=== PATIENT | female | born 1950 | race Caucasian/White ===

== ENCOUNTER 2023-01-11 21:37 | Emergency (ER) | payer MEDICARE ==
[~2023-01-11] VITALS: Ht 170.2 cm; Wt 59.0 kg
--- NOTE | 2023-01-11 22:45 | NUR ---
PT AMB TO [facility] WITH CONCERN OF THE SUTURE SITE ON HER BACK WAS INFECTED.
--- NOTE | 2023-01-11 22:50 | NUR ---
AT BEDSIDE FOR EVAL.
[2023-01-11] MEDS ORDERED: SULF1TAB48 PO (22:55)
[2023-01-11] MEDS ORDERED: SULFAMETH/TRIMETH 800/160 MG TABLET PO ONE (23:00)
[2023-01-11] MEDS ORDERED: SULFAMETH/TRIMETH 800/160 MG TABLET ONE (23:05)
--- NOTE | 2023-01-11 23:10 | NUR ---
PT A,A AND O X 4 WITH NO C/O PAIN AND NAD OBSERVED.Patient discharged to home in stable condition. Written and verbal after care instructions given. Patient verbalizes understanding of instructions. Stressed follow up or return to ER for worsening s/s. PT AMB OUT WITH STEADY GAIT WITH HER DAUGHTER.
[2023-01-11 23:18] VITALS: BP 155/79
== END 2023-01-11 23:10 | disposition home or self-care (01) ==
LOC: ER 21:39
DX: L03.312 Cellulitis of back [any part except buttock and flank] (principal); Z79.899 Other long term (current) drug therapy
CPT/HCPCS: A4663